=== PATIENT | female | born 1950 | race African-American/Black ===

== ENCOUNTER 2017-08-24 14:39 | Outpatient (CLI) | payer OTHER ==
[2017-08-24 16:21] LABS: Hematocrit 38.1 % (36.0-47.0); Mean Platelet Volume 8.4 fL (7.4-10.4); Red Blood Cell (RBC) Count 4.29 mill/uL (4.20-5.40); White Blood Cell (WBC) Count 7.1 thou/uL (4.8-10.8)
[2017-08-24 16:45] LABS: Anion Gap 12 mmol/L (10-20); BUN (Urea Nitrogen) 13 mg/dL (9.8-20.1); Calc. Creatinine Clearance 0 mL/min (70-130); Carbon Dioxide 24 mmol/L (23-31); Chloride 108 mmol/L (98-107); Estimated GFR-MDRD 90
== END 2017-08-24 14:40 | disposition home or self-care (01) ==
LOC: LABBT 14:39
PROVIDERS: ATTEND Neurological Surgery
DX: Z01.818 Encounter for other preprocedural examination (principal); M47.12 Other spondylosis with myelopathy, cervical region
CPT/HCPCS: 80048; 85027; 87081; 93005; 93010

== ENCOUNTER 2017-09-05 06:14 | Inpatient (IN) | payer OTHER ==
[2017-09-05] MEDS ORDERED: Midazolam HCl 2 mg/2 ml Vial ONE ×2 (07:00→07:18)
[2017-09-05] MEDS ORDERED: Fentanyl 250 MCG/5 ML VIAL ONE (07:00)
[2017-09-05] MEDS ORDERED: Sodium Chloride 0.9% 10 ML ONE (07:16)
[2017-09-05] MEDS ORDERED: Propofol 200 MG/20 ML VIAL ONE ×2 (08:28)
[2017-09-05] MEDS ORDERED: Dexamethasone 20 MG/5 ML VIAL ONE (08:28)
[2017-09-05] MEDS ORDERED: Lidocaine 1% PF 5 ML VIAL ONE (08:28)
[2017-09-05] MEDS ORDERED: Glycopyrrolate 0.2 MG/ML 5 ML SYRINGE ONE (08:28)
[2017-09-05] MEDS ORDERED: Ondansetron HCl/PF 4 MG/2 ML Vial ONE (08:28)
[2017-09-05] MEDS ORDERED: Promethazine HCl 25 MG/ML VIAL SLOW IVP PRN (09:47)
[2017-09-05] MEDS ORDERED: Promethazine HCl 25 MG/ML VIAL IM PRN ×2 (09:47→11:27)
[2017-09-05] MEDS ORDERED: Ondansetron HCl/PF 4 MG/2 ML Vial IVP PRN ×2 (09:47→11:27)
[2017-09-05] MEDS ORDERED: Fentanyl 100 MCG/2 ML VIAL ONE ×2 (10:12→10:49)
[2017-09-05] MEDS ORDERED: Promethazine HCl 12.5 MG SUPP PR PRN (11:27)
[2017-09-05] MEDS ORDERED: diphenhydrAMINE HCl 25 MG CAP PO PRN (11:27)
[2017-09-05] MEDS ORDERED: diphenhydrAMINE HCl 50 MG/ML 1 ML VIAL IVP PRN (11:27)
[2017-09-05] MEDS ORDERED: HYDROcodone/Acetaminophen 10/325 mg Tablet PO PRN (11:27)
[2017-09-05] MEDS ORDERED: Milk Of Magnesia 30 ML UDCUP PO PRN (11:27)
[2017-09-05] MEDS ORDERED: Acetaminophen 325 MG TAB PO PRN (11:27)
[2017-09-05] MEDS ORDERED: Morphine Sulfate 2 MG/ML SYRINGE SLOW IVP PRN (11:27)
[2017-09-05] MEDS ORDERED: Mag-Al 1200 mg/1200 mg/30 ML UDCUP PO PRN (11:27)
[2017-09-05] MEDS ORDERED: Acetaminophen 650 MG Suppository PR PRN (11:27)
--- NOTE | 2017-09-05 12:33 | OP ---
DATE OF PROCEDURE: 09/05/2017 SURGEON: Rolo George M.D. JOY LOADER: HARSH Villanueva PROCEDURE: Anterior cervical diskectomy C4 through C7. Interbody arthrodesis, intravertebral biome chanical device, local morselized autograft, demineralized bone matrix, anterior titanium instrument ation C4-C7. PROCEDURE IN DETAIL: The patient was brought into the operating room, intubated. She was positione d supine with the head in modest extension on a gel-filled donut. Incision was made exposing C4 thr ough C7 and our level was confirmed by x-ray. We placed distraction across the disc spaces, complet neel debrided anterior osteophytes and using the operating microscope and microdissection techniques, completely decompressed the intravertebral discs down beneath the posterior longitudinal ligament, decompressing the spinal cord at each affected level. The bony endplates were then decorticated for the purpose of arthrodesis and appropriately sized intravertebral biomechanical PEEK devices were b rought into the field, filled with demineralized bone matrix and local morselized autograft, and tap ped into place securely at C4-5, C5-6, and C6-7. Next, an anterior plate was brought in the field a nd secured to C4, C5, C6, and C7 using two 14 mm screws at each level. The wound was then extensive ly irrigated, immaculate hemostasis was secured, and the wound was closed in anatomic layers over a drain.
[2017-09-05] MEDS: Sodium Chloride 0.9% 1,000 ML IV SCH ×2 (12:36→20:48)
[2017-09-05] MEDS: HYDROcodone/Acetaminophen 10/325 mg Tablet PO PRN ×2 (13:35→23:42)
[2017-09-05] MEDS: tiZANidine HCl 4 MG TAB PO PRN ×2 (14:59→20:48)
[2017-09-06 01:44] VITALS: BMI 35.6
[2017-09-06] MEDS: tiZANidine HCl 4 MG TAB PO PRN ×2 (05:41→17:11)
[2017-09-06] MEDS: HYDROcodone/Acetaminophen 10/325 mg Tablet PO PRN (11:27)
[2017-09-06] MEDS: Sodium Chloride 0.9% 1,000 ML IV SCH (12:59)
[2017-09-07] MEDS: HYDROcodone/Acetaminophen 10/325 mg Tablet PO PRN ×2 (04:28→13:22)
[2017-09-07] MEDS: Sodium Chloride 0.9% 1,000 ML IV SCH ×2 (04:38→17:36)
[2017-09-07] MEDS ORDERED: Dexamethasone 10 MG/ML VIAL SLOW IVP SCH (08:45)
[2017-09-07] MEDS: tiZANidine HCl 4 MG TAB PO PRN ×3 (09:56→17:36)
[2017-09-08] MEDS: tiZANidine HCl 4 MG TAB PO PRN (01:09)
[2017-09-08] MEDS: HYDROcodone/Acetaminophen 10/325 mg Tablet PO PRN (05:56)
[2017-09-08] MEDS: Sodium Chloride 0.9% 1,000 ML IV SCH (06:39)
[2017-09-08 07:41] VITALS: BP 162/77; TEMP 98.1
--- NOTE | 2017-09-08 11:21 | DIS ---
HOSPITAL COURSE: The patient is a 66-year-old -Greek female status post C4-C7 ACDF for ce rvical stenosis. There were no intraoperative complications. FELISHA drain was placed intraoperatively, but had minimal output and was removed the next day. The patient's pain was well controlled with p .o. medication during her admission course. She initially complained of some difficulty swallowing and was treated with 10 mg of IV Decadron, this improved and she is tolerating a soft diet without a ny difficulty. She has been ambulatory throughout the department. She is voiding appropriately. Dany agarwal will plan dismiss to home. She is scheduled with a followup appointment in our office in 2 weeks with x-rays. I discussed home restrictions. She has been provided with prescriptions for [place] and Zanaflex. Please reach out to the neurosurgical service for additional questions or concerns.
== END 2017-09-08 13:23 | disposition home or self-care (01) | DRG 472 ==
LOC: SURG A 06:14 → EDSTATUS 14:26
PROVIDERS: ADMIT Neurological Surgery; ATTEND Neurological Surgery
PROC: 0RG20A0 Fusion of 2 or more Cervical Vertebral Joints with Interbody Fusion Device, Anterior Approach, Anterior Column, Open Approach (ICD-10-PCS; principal; 2017-09-05)
PROC: 01N10ZZ Release Cervical Nerve, Open Approach (ICD-10-PCS; 2017-09-05)
PROC: 0RB30ZZ Excision of Cervical Vertebral Disc, Open Approach (ICD-10-PCS; 2017-09-05)
DX: M48.02 Spinal stenosis, cervical region (principal); M47.12 Other spondylosis with myelopathy, cervical region; Z88.5 Allergy status to narcotic agent
CPT/HCPCS: 76001; A4216; C1713; G8978-GP-CK; G8979-GP-CK; G8980-GP-CK; G8987-GO-CJ; G8988-GO-CI; J1100; J2001; J2250; J2270; J2405; J2550; J2704; J3010; J3490

== ENCOUNTER 2017-09-22 11:27 | Outpatient (CLI) | payer OTHER ==
--- NOTE | 2017-09-22 14:38 | RAD ---
THREE VIEWS CERVICAL SPINE: 09/22/2017 HISTORY: Cervical spondylosis. The patient is post neck surgery on 09/05/2017. The patient complains of navid ateral shoulder pain and unsteady gait. COMPARISON: 12/31/2013. FINDINGS: C1 to cervicothoracic junction is seen on the lateral view. No fracture or subluxation is identifie d. There has been interval post-surgical changes when compared to the prior study related to anteri or cervical fusion with an anterior plate and screws transfixing C4-5, C5-6, and C6-7 levels with in tradiskal prostheses seen at these levels. No hardware complication is seen. There is mild narrowing of the C3-4 intervertebral disk space with osteophytes seen anteriorly. Pre vertebral soft tissues are within normal limits. The odontoid is mostly obscured on the odontoid vi ew. IMPRESSION: Interval post surgical changes cervical spine. No hardware complication is seen. POS: SAUL
== END 2017-09-22 11:28 | disposition home or self-care (01) ==
LOC: TBSIIMAG 11:27
PROVIDERS: ATTEND Physician Assistant
DX: M47.12 Other spondylosis with myelopathy, cervical region (principal); Z98.890 Other specified postprocedural states
CPT/HCPCS: 72040

== ENCOUNTER 2017-11-03 14:03 | Outpatient (CLI) | payer OTHER ==
--- NOTE | 2017-11-03 15:18 | RAD ---
THREE VIEWS OF THE CERVICAL SPINE: Comparison: 09-22-17 History: Follow up cervical fusion with degenerative disc disease. FINDINGS: Three views of the cervical spine shows normal height and alignment of the vertebral bodies without f racture or subluxation. The patient is status post anterior fusion of C4 through C7 with anterior vira te and screws. The disc spaces are in good position within the disc spaces. No prevertebral soft tiss ue swelling is seen. IMPRESSION: Stable post-surgical changes of the cervical spine without evidence of complication. POS: SAUL
== END 2017-11-03 14:04 | disposition home or self-care (01) ==
LOC: TBSI PT 14:03
PROVIDERS: ATTEND Neurological Surgery
DX: M50.30 Other cervical disc degeneration, unspecified cervical region (principal); Z98.1 Arthrodesis status
CPT/HCPCS: 72040

== ENCOUNTER 2017-11-24 10:58 | Outpatient (CLI) | payer OTHER | END 2017-11-24 10:59 | disposition home or self-care (01) | LOC: BICMAMMO 10:58 | PROVIDERS: ATTEND Internal Medicine | DX: Z12.31 Encounter for screening mammogram for malignant neoplasm of breast (principal); Z78.0 Asymptomatic menopausal state; M85.89 Other specified disorders of bone density and structure, multiple sites | CPT/HCPCS: 77063; 77067; 77080 ==

== ENCOUNTER 2017-12-12 21:53 | Emergency (ER) | payer OTHER, MEDICARE ==
[2017-12-12] MEDS ORDERED: Lidocaine 1% w/Epinephrine 1:100K 20 ML VIAL ONE (22:39)
[2017-12-12] MEDS ORDERED: Adacel (T-DAP) 0.5 ML VIAL ONE (22:49)
[2017-12-12] MEDS ORDERED: Bacitracin Zinc 1 Packet ONE (23:23)
== END 2017-12-12 23:55 | disposition home or self-care (01) ==
LOC: ERS 21:53
DX: L03.011 Cellulitis of right finger (principal); I10 Essential (primary) hypertension; Z79.899 Other long term (current) drug therapy; Z23 Encounter for immunization
CPT/HCPCS: 26011; 87070; 87077; 87186; 87205; 90471; 90715; J2001

== ENCOUNTER 2017-12-13 08:51 | Emergency (ER) | payer OTHER, MEDICARE ==
[2017-12-13] MEDS ORDERED: Clindamycin/D5W 600 mg/50 ml Premix Bag ONE (09:28)
--- NOTE | 2017-12-13 11:01 | RAD ---
RIGHT HAND SECOND DIGIT TWO VIEWS: History: Injury. Pain. Comparison: None. FINDINGS: There is amputation of the distal soft tissues. No radiopaque foreign body. Joint spaces are preserve d. No fracture. IMPRESSION: Amputation and injury of the distal soft tissues. No fracture or radiopaque foreign body. POS: ROBE
[2017-12-13] MEDS ORDERED: Ondansetron HCl/PF 4 MG/2 ML Vial ONE (11:22)
[2017-12-13] MEDS ORDERED: Morphine 4 MG/ML Carpuject ONE (11:22)
== END 2017-12-13 12:04 | disposition home or self-care (01) ==
LOC: ERS 08:51
DX: L03.011 Cellulitis of right finger (principal); I10 Essential (primary) hypertension; Z79.899 Other long term (current) drug therapy
CPT/HCPCS: 96365; 96375; J2270; J2405; J3490

== ENCOUNTER 2017-12-29 14:39 | Outpatient (CLI) | payer OTHER ==
--- NOTE | 2017-12-29 16:00 | RAD ---
CERVICAL SPINE 3 VIEWS: COMPARISON: 11/03/17. HISTORY: Status post cervical ACDF. FINDINGS: Stable postoperative changes with transvertebral body screws at C4, C5, C6, and C7. Stable disk pros thesis at C4-C5, C5-C6, and C6-C7. No perihardware lucency. Stable appearance of the hardware. Sta ble appearance of the cervical vertebrae. No prevertebral soft tissue swelling. Predental space is normal. No malalignment in the AP projection. Odontoid process is limited in evaluation on the uppe rmost projection. IMPRESSION: Uncomplicated and unchanged cervical fusion changes. POS: ROBE
== END 2017-12-29 14:40 | disposition home or self-care (01) ==
LOC: TBSIIMAG 14:39
PROVIDERS: ATTEND Neurological Surgery
DX: M47.812 Spondylosis without myelopathy or radiculopathy, cervical region (principal); Z98.1 Arthrodesis status
CPT/HCPCS: 72040

== ENCOUNTER 2018-06-15 15:51 | Outpatient (CLI) | payer OTHER | END 2018-06-15 15:52 | disposition home or self-care (01) | LOC: BICRAD 15:51 | PROVIDERS: ATTEND Internal Medicine | DX: M79.641 Pain in right hand (principal); M79.642 Pain in left hand; M19.042 Primary osteoarthritis, left hand; M19.041 Primary osteoarthritis, right hand ==

== ENCOUNTER 2020-01-25 15:39 | Emergency (ER) | payer MEDICARE ==
[~2020-01-25 15:39] MED LIST: Iopamidol-370 76% 500 ML 1 ML ONE
[2020-01-25 16:10] LABS: #Basophils 0.1 thou/uL (0.0-0.2); #Eosinphils 0.1 thou/uL (0.0-0.7); #Lymphocytes 2.1 thou/uL (1.20-3.40); #Monocytes 0.4 thou/uL (0.11-0.59); #Neutrophils 4.9 thou/uL (1.40-6.50); %Basophils 0.7 % (0.0-1.0); %Eosinophils 1.5 % (0.0-10.0); %Lymphocytes 27.4 % (21.0-51.0); %Monocytes 4.9 % (0.0-10.0); %Neutrophils 65.5 % (42.0-75.0); Hemoglobin 13.5 g/dL (12.0-16.0); Mean Corpuscular HGB CONC 32.2 g/dL (32.0-36.0); Mean Corpuscular Hemoglobin 28.2 pg (27.0-31.0); Mean Corpuscular Volume 87.3 fL (78.0-98.0); Platelet Count 239 thou/uL (130-400); RBC Distribution Width 13.1 % (11.5-14.5); Red Blood Cell (RBC) Count 4.81 mill/uL (4.20-5.40); White Blood Cell (WBC) Count 7.5 thou/uL (4.8-10.8)
[2020-01-25 16:29] LABS: Bacteria/HPF None Seen HPF (None Seen); Bilirubin Negative (Negative); Blood, Urine Trace (Negative); Clarity Clear (Clear); Glucose, Urine (Dipstick) Normal (Negative); Leukocyte Negative Leu/uL (Negative); Nitrite Negative (Negative); Protein, Urine (Dipstick) Negative (Neg-Trace); RBC/HPF 0-3 HPF (0-3); Squamous Epithelial 0-3 HPF (0-3); Urobilinogen Normal mg/dL (Less than 2); WBC/HPF 0-3 HPF (0-3)
[2020-01-25 16:30] LABS: ALT (SGPT) 10 U/L (8-55); AST (SGOT) 16 U/L (5-34); Albumin 3.8 g/dL (3.4-4.8); Alkaline Phosphatase 103 U/L (40-110); Anion Gap 12 mmol/L (10-20); BUN (Urea Nitrogen) 8 mg/dL (9.8-20.1); Bilirubin, Total 0.4 mg/dL (0.2-1.2); Calc. Creatinine Clearance 0 mL/min (70-130); Calcium 9.1 mg/dL (7.8-10.44); Carbon Dioxide 23 mmol/L (23-31); Chloride 109 mmol/L (98-107); Estimated GFR-MDRD Greater than 90; Globulin 3.4 g/dL (2.4-3.5); Glucose 93 mg/dL (80-115); Lipase 7 U/L (8-78); Potassium 3.8 mmol/L (3.5-5.1); Protein, Total 7.2 g/dL (6.0-8.3); Sodium 140 mmol/L (136-145)
[2020-01-25] MEDS ORDERED: Morphine 4 MG/ML VIAL ONE ×2 (18:31→18:39)
[2020-01-25] MEDS ORDERED: hydrALAZINE 20 MG/ML VIAL ONE (18:31)
[2020-01-25] MEDS ORDERED: Pantoprazole 40 MG VIAL ONE ×2 (18:32→18:39)
[2020-01-25] MEDS ORDERED: Ondansetron PF 4 MG/2 ML Vial ONE ×3 (18:32→19:11)
--- NOTE | 2020-01-25 20:02 | CT ---
CT OF THE ABDOMEN AND PELVIS WITH IV CONTRAST INDICATION: Sharp abdominal pain starting last p.m. without fever or chills COMPARISON: None FINDINGS: ABDOMEN: Lung bases: There is mild subsegmental volume loss involving both lower lobes Liver: There is a mild amount of fluid surrounding the liver. No focal hepatic lesion is evident. Gallbladder: Normal appearing. Pancreas: Normal. Adrenal glands: Normal. Spleen: Normal. Kidneys and ureters: There is a large left renal cyst involving inferior pole measuring 7.1 x 7.8 cm. No hydronephrosis is demonstrated. Vasculature: There are mild vascular calcifications seen involving the visualized vasculature. Lymph nodes:No lymphadenopathy. Free fluid in abdomen:No free fluid is evident. PELVIS: Small and large bowel: There is scattered colonic diverticula. There is a mild amount retained stool within colon. There are thickened loops of mid to distal jejunum as well as portions of the proximal ileum seen within the lower midabdomen and right lower quadrant of the abdomen is surroundin g mesenteric edema. There is opacification of the arteries and veins as well as the mesenteric arcades feeding this segment of bowel. There is no overt evidence to suggest presence of pneumatosis. The terminal ileum is normal-appearing. Appendix:Normal Bladder: Normal. Rectal and perirectal soft tissues:Normal. Reproductive structures: Fibroid uterus Free fluid in pelvis: Mild free fluid Lymphadenopathy pelvis: No lymphadenopathy is evident. Osseous structures: No acute osseous abnormality. No destructive osteolytic or osteoblastic lesion i s identified. There is scattered degenerative and osteoarthritic changes. Soft tissues:Normal. IMPRESSION: 1. Multiple dilated and inflamed loops of mid to distal small bowel consistent with an enteritis. Fin dings may be infectious or ischemic in etiology. However, there is good opacification of the superior mesenteric arterial branches to these segments of bowel as well as enhancement of the mesent allegra arcades. There is no overt evidence suggest presence of a thrombus within the superior mesenteric vein. Infectious enteritis is favored. No evidence to suggest pneumatosis or drainable int ra-abdominal fluid collection. There is mild scattered free fluid within the abdomen and pelvis. 2. Large left renal cyst. 3. Fibroid uterus
== END 2020-01-25 20:45 | disposition home or self-care (01) ==
LOC: ERS 15:39
DX: K52.9 Noninfective gastroenteritis and colitis, unspecified (principal); I10 Essential (primary) hypertension; Z79.899 Other long term (current) drug therapy
CPT/HCPCS: 36415; 74177; 80053; 81003; 81015; 83690; 85025; 93005; 94760; 96361; 96374; 96375; C9113; J0360; J2270; J2405

== ENCOUNTER 2020-12-19 07:30 | Outpatient (CLI) | payer OTHER | END 2020-12-19 07:31 | disposition home or self-care (01) | LOC: BICMRI 07:30 | PROVIDERS: ATTEND Family Medicine | DX: M54.5 Low back pain (principal); M47.816 Spondylosis without myelopathy or radiculopathy, lumbar region; M48.061 Spinal stenosis, lumbar region without neurogenic claudication | CPT/HCPCS: 72148 ==

== ENCOUNTER 2021-02-12 07:49 | Outpatient (CLI) | payer MEDICARE | END 2021-02-12 07:50 | disposition home or self-care (01) | LOC: BICMAMMO 07:49 | PROVIDERS: ATTEND Internal Medicine | DX: Z12.31 Encounter for screening mammogram for malignant neoplasm of breast (principal); Z13.820 Encounter for screening for osteoporosis; Z78.0 Asymptomatic menopausal state; M85.89 Other specified disorders of bone density and structure, multiple sites; Z91.89 Other specified personal risk factors, not elsewhere classified | CPT/HCPCS: 77063; 77067; 77080 ==

== ENCOUNTER 2023-01-07 08:25 | Outpatient (CLI) | payer OTHER | END 2023-01-07 08:26 | disposition home or self-care (01) | LOC: BICRAD 08:25 | PROVIDERS: ATTEND Internal Medicine | DX: M25.562 Pain in left knee (principal) ==

== ENCOUNTER 2023-01-29 22:26 | Emergency (ER) | payer OTHER ==
[~2023-01-29 22:26] MED LIST changes: +ISOVUE-370 76%-LOCM 1 ML ONE; -Iopamidol-370 76% 500 ML 1 ML ONE
[2023-01-29] MEDS ORDERED: Ketorolac Tromethamine 30 MG/ML VIAL ONE (22:48)
[2023-01-29] MEDS ORDERED: Ondansetron PF 4 MG/2 ML Vial ONE (22:48)
[2023-01-29 23:06] LABS: Bilirubin Negative (Negative); Blood, Urine 2+ (Negative); Clarity Turbid (Clear); Glucose, Urine (Dipstick) Normal (Negative); Ketone, Urine Negative (Negative); Leukocyte 500 Leu/uL (Negative); Nitrite Negative (Negative); Protein, Urine (Dipstick) 50 mg/dL (Neg-Trace); RBC/HPF Greater than 50 HPF (0-3); Specific Gravity, Urine 1.012 (1.002-1.036); Squamous Epithelial 0-3 HPF (0-3); Urobilinogen Normal mg/dL (Less than 2); WBC/HPF Greater than 50 HPF (0-3); pH, Urine 8.5 (5.0-9.0)
[2023-01-29 23:07] LABS: Bacteria/HPF 1+ HPF (None Seen)
[2023-01-29 23:11] LABS: #Eosinphils 0.1 thou/uL (0.0-0.7); #Lymphocytes 1.9 thou/uL (1.20-3.40); #Monocytes 0.5 thou/uL (0.11-0.59); #Neutrophils 5.5 thou/uL (1.40-6.50); %Basophils 0.3 % (0.0-1.0); %Eosinophils 1.2 % (0.0-10.0); %Lymphocytes 24.1 % (21.0-51.0); %Monocytes 5.9 % (0.0-10.0); %Neutrophils 68.6 % (42.0-75.0); Hemoglobin 12.3 g/dL (12.0-16.0); Mean Corpuscular HGB CONC 32.5 g/dL (32.0-36.0); Mean Corpuscular Hemoglobin 28.4 pg (27.0-31.0); Mean Corpuscular Volume 87.6 fl (78.0-98.0); Mean Platelet Volume 8.5 fL (7.4-10.4); Platelet Count 260 10x3/uL (130-400); Red Blood Cell (RBC) Count 4.34 mill/uL (4.20-5.40); White Blood Cell (WBC) Count 8.1 10x3/uL (4.8-10.8)
[2023-01-29 23:28] LABS: ALT (SGPT) 13 U/L (8-55); AST (SGOT) 18 U/L (5-34); Albumin 3.9 g/dL (3.4-4.8); Alkaline Phosphatase 93 U/L (40-110); Anion Gap 13 mmol/L (10-20); BUN (Urea Nitrogen) 13 mg/dL (9.8-20.1); Bilirubin, Total 0.4 mg/dL (0.2-1.2); Calc. Creatinine Clearance 0 mL/min (70-130); Calcium 9.5 mg/dL (7.8-10.44); Carbon Dioxide 28 mmol/L (23-31); Chloride 104 mmol/L (98-107); Estimated GFR 77; Globulin 3.8 g/dL (2.4-3.5); Glucose 107 mg/dL (80-115); Lipase 15 U/L (8-78); Protein, Total 7.7 g/dL (5.8-8.1); Sodium 141 mmol/L (136-145)
[2023-01-29] MEDS ORDERED: cefTRIAXone\\ROCEPHIN 1 GM VIAL ONE (23:36)
== END 2023-01-30 00:47 | disposition home or self-care (01) ==
LOC: ERS 22:26
DX: N10 Acute pyelonephritis (principal); I10 Essential (primary) hypertension
CPT/HCPCS: 74177; 80053; 81003; 81015; 83690; 85025; 87077; 87086; 87186; 96374; 96375; J0696; J1885; J2405; Q9966

== ENCOUNTER 2023-03-03 15:34 | Outpatient (CLI) | payer OTHER | END 2023-03-03 15:35 | disposition home or self-care (01) | LOC: BICMAMMO 15:34 | PROVIDERS: ATTEND Internal Medicine | DX: Z12.31 Encounter for screening mammogram for malignant neoplasm of breast (principal); Z91.89 Other specified personal risk factors, not elsewhere classified | CPT/HCPCS: 77063; 77067 ==

== ENCOUNTER 2023-07-28 15:08 | Outpatient (CLI) | payer OTHER ==
[~2023-07-28 15:08] MED LIST changes: -ISOVUE-370 76%-LOCM 1 ML ONE; +Iopamidol 370 76% 100 ML VIAL ONE
== END 2023-07-28 15:09 | disposition home or self-care (01) ==
LOC: BICCT 15:08
PROVIDERS: ATTEND Internal Medicine
DX: R59.0 Localized enlarged lymph nodes (principal); K11.8 Other diseases of salivary glands
CPT/HCPCS: 70491; Q9967

== ENCOUNTER 2024-01-13 12:38 | Outpatient (CLI) | payer OTHER | END 2024-01-13 12:39 | disposition home or self-care (01) | LOC: BICRAD 12:38 | PROVIDERS: ATTEND Internal Medicine | DX: U07.1 COVID-19 (principal) | CPT/HCPCS: 71046 ==

== ENCOUNTER 2025-01-17 13:59 | Outpatient (CLI) | payer MEDICARE | END 2025-01-17 14:00 | disposition home or self-care (01) | LOC: BICMAMMO 13:59 | PROVIDERS: ATTEND Internal Medicine | DX: N63.22 Unspecified lump in the left breast, upper inner quadrant (principal) | CPT/HCPCS: 76642; 77066; G0279 ==